=== PATIENT | male | born 1975 | race Caucasian/White ===

== ENCOUNTER 2020-04-03 19:47 | Emergency (ER) | payer MEDICARE, MEDICAID ==
[~2020-04-03] VITALS: Ht 162.6 cm; Wt 73.0 kg
[~2020-04-03 19:47] MED LIST: TOPUD
[2020-04-03] MEDS ORDERED: BACITRACIN ZINC OINT UDPKT TOP ONE (21:00)
[2020-04-03] MEDS ORDERED: TETANUS, DIPHTHERIA, PERTUSSIS VAC/PF 0.5ML (>7YR OLD) IM ONE (21:00)
[2020-04-03] MEDS ORDERED: LIDOCAINE HCL/PF 1% 10 MG/ML 5ML VIAL IJ ONE (21:00)
[2020-04-03] MEDS ORDERED: IBUPROFEN 600MG TABLET PO ONE (21:00)
[2020-04-03] MEDS ORDERED: CEPHALEXIN 250MG CAPSULE PO ONE (21:15)
[2020-04-03] MEDS ORDERED: SULFAMETHOXAZOLE/TRIMETHOPRIM 800/160MG TABLET PO ONE (21:15)
[2020-04-03 22:28] VITALS: BP 135/82
== END 2020-04-03 22:29 | disposition home or self-care (01) ==
LOC: ER 19:47
DX: S61.451A Open bite of right hand, initial encounter (principal); S81.852A Open bite, left lower leg, initial encounter; W54.0XXA Bitten by dog, initial encounter; Y93.89 Activity, other specified; Y92.89 Other specified places as the place of occurrence of the external cause; Y99.8 Other external cause status; Z98.890 Other specified postprocedural states
CPT/HCPCS: 12002; 73130; 90471; 90715; 99284; J3490